=== PATIENT | male | born 1995 | race Caucasian/White ===

== ENCOUNTER → 2022-01-27 | Outpatient (CLI) | payer BC ==
--- NOTE | 2022-01-27 11:47 | Diagnostic Imaging Report ---
Indication: Wrist pain. Time of Exam: 9:25 AM 2 views of each wrist were obtained. Distal radius and ulna are intact bilaterally. Carpal bones and metacarpals are intact. There are no fractures. Joint spaces are maintained. No osseous erosive changes are seen. Soft tissues are unremarkable. Impression: Unremarkable bilateral wrist radiograph. Dictated by: Dictated on workstation # [id number]
--- NOTE | 2022-01-27 11:48 | Diagnostic Imaging Report ---
Indication: Bilateral hand pain. Time of Exam: 9:42 AM Multiple views of bilateral hands were obtained. Metacarpals and phalanges are intact. The joint spaces are well maintained. No osseous erosive changes are seen. There are no fractures. Soft tissues are unremarkable. Impression: Unremarkable bilateral hand radiographs. Dictated by: Dictated on workstation # [id number]
== END ==
LOC: ORTHO 09:18
PROVIDERS: ATTEND Orthopaedic Surgery
DX: M79.641 Pain in right hand (principal); M79.642 Pain in left hand; M25.531 Pain in right wrist; M25.532 Pain in left wrist
CPT/HCPCS: 99203

== ENCOUNTER 2022-01-31 05:39 | Outpatient (CLI) | payer BC ==
[~2022-01-31] VITALS: Ht 177.8 cm; Wt 99.1 kg
[2022-02-03] MEDS ORDERED: FEXO180T84 PO (14:37)
[2022-02-03] MEDS ORDERED: ACET325T38 PO (14:37)
[2022-02-03] MEDS ORDERED: HYDR-700 PO (14:37)
== END 2022-02-03 14:47 | disposition home or self-care (01) ==
LOC: PREOP 05:39
PROVIDERS: ATTEND Orthopaedic Surgery
DX: Z01.818 Encounter for other preprocedural examination (principal)

== ENCOUNTER 2022-02-07 06:02 | Day surgery (SDC) | payer BC ==
[2022-02-07] VITALS (10 sets, daily range): BP systolic 102–122; BP diastolic 45–82
[~2022-02-07] VITALS: Ht 177.8 cm; Wt 99.1 kg
[~2022-02-07 06:02] MED LIST: ACET325T38 PO; FEXO180T84 PO; HYDR-700 PO
[2022-02-07] MEDS ORDERED: CLINDAMYCIN 600 MG/50 ML IVPB 50 ML IV ONE (06:15)
[2022-02-07] MEDS: LACTATED RINGERS 1,000 ML IV PRN ×2 (06:31→08:09)
[2022-02-07] MEDS ORDERED: NEO/POLY/BAC (NEOSPORIN) OINT 15 GM TUBE ONE (06:55)
[2022-02-07] MEDS ORDERED: BUPIVACAINE 0.25% 30 ML (SENSORCAINE) VIAL ONE (06:55)
[2022-02-07] MEDS ORDERED: PROPOFOL INJECTION 50 ML IV ONE ×2 (06:57→08:18)
[2022-02-07] MEDS ORDERED: LIDOCAINE PF 0.5% 50 ML (XYLOCAINE) VIAL ONE (06:57)
[2022-02-07] MEDS ORDERED: MIDAZOLAM 2 MG/2 ML (VERSED) VIAL ONE ×2 (06:58→07:57)
--- NOTE | 2022-02-07 07:42 | Progress Note-Pre Operative ---
Pre-Operative Progress Note H&P Reviewed The H&P was reviewed, patient examined and no changes noted. Date Seen by Provider: Feb 07, 2022 Time Seen by Provider: 07:30 Date H&P Reviewed: Feb 07, 2022 Time H&P Reviewed: 07:30 Pre-Operative Diagnosis: Left Carpal Tunnel Syndrome EARNEST DENNISON MD Feb 07, 2022 07:42
--- NOTE | 2022-02-07 08:30 | Operative Report - Ortho ---
Operative Report Surgeon (s)/Global Climate Change Researcher (s) Surgeon EARNEST DENNISON MD Global Climate Change Researcher n/a Pre-Operative Diagnosis Left Carpal Tunnel Syndrome Post-Operative Diagnosis same Operative Report Date of Procedure: Feb 07, 2022 Name of Procedure Performed: Left Carpal Tunnel Release Description & Findings After obtaining informed consent and marking the patient in the preoperative holding area, the patient was administered IV antibiotics. The patient was t aken to the operating room and sia block anesthesia was induced. The left upper extremity was prepped and draped in the usual sterile fashion. Surgical timeout was taken. Incision was made just ulnar to the thenar crease. Blunt dissection was carried down to the longitudinal fibers of the palmar fascia; these were divided in line revealing the transverse carpal ligament. Beginning distally and working proximally, carpal tunnel release was performed. Nerve protector was placed and release was completed back to the level of the forearm fascia. Probe was inserted and release was palpably complete. Tourniquet was dropped and hemostasis was achieved. Wound was closed with 4-0 nylon. Wound was dressed with antibiotic ointment, xeroform, 4x4s, swetha, ABD for soft splint, cast padding, and MADISYN wrap. Patient tolerated the proceudre well and was stable to the recovery room. Anesthesia Type Sia Block Estimated Blood Loss minimal Specimen(s) collected/removed None EARNEST DENNISON MD Feb 07, 2022 08:30
[2022-02-07] MEDS ORDERED: OXC5T PO (08:32)
--- NOTE | 2022-02-07 08:38 | Anesthesia-General Post-Op ---
MAC Patient Condition Mental Status/LOC: Same as Preop Cardiovascular: Satisfactory Nausea/Vomiting: Absent Respiratory: Satisfactory Pain: Controlled Complications: Absent Post Op Complications Complications None Follow Up Care/Instructions Patient Instructions None needed. Anesthesiology Discharge Order Discharge Order Patient is doing well, no complaints, stable vital signs, no apparent adverse anesthesia problems. No complications reported per nursing. MARY GRACE PEREZ CRNA Feb 07, 2022 08:38
[2022-02-07] MEDS ORDERED: ONDANSETRON 4 MG/2 ML (SDV) Z0FRAN IVP PRN (08:45)
[2022-02-07] MEDS ORDERED: fentaNYL INJ 100 MCG/2 ML AMP IVP ONE (08:45)
== END 2022-02-07 10:25 | disposition home or self-care (01) ==
LOC: SDC 06:02
PROVIDERS: ATTEND Orthopaedic Surgery
DX: G56.02 Carpal tunnel syndrome, left upper limb (principal); F17.210 Nicotine dependence, cigarettes, uncomplicated; E66.9 Obesity, unspecified; Z68.30 Body mass index [BMI] 30.0-30.9, adult
CPT/HCPCS: 87081

== ENCOUNTER → 2022-02-25 | Outpatient (CLI) | payer BC ==
[~2022-02-25] MED LIST changes: +OXC5T PO
== END ==
LOC: ORTHO 14:36
PROVIDERS: ATTEND Orthopaedic Surgery
DX: Z47.89 Encounter for other orthopedic aftercare (principal); E11.9 Type 2 diabetes mellitus without complications; Z98.890 Other specified postprocedural states

== ENCOUNTER 2022-03-16 07:02 | Outpatient (CLI) | payer BC ==
[~2022-03-16] VITALS: Ht 177.8 cm; Wt 99.1 kg
== END 2022-03-17 15:24 ==
LOC: PREOP 07:02
PROVIDERS: ATTEND Orthopaedic Surgery
DX: Z01.818 Encounter for other preprocedural examination (principal); G56.01 Carpal tunnel syndrome, right upper limb

== ENCOUNTER 2022-03-21 11:22 | Day surgery (SDC) | payer BC ==
[2022-03-21] VITALS (7 sets, daily range): BP systolic 108–141; BP diastolic 68–84
[~2022-03-21] VITALS: Ht 177 cm; Wt 99.1 kg
[2022-03-21] MEDS ORDERED: CLINDAMYCIN 600 MG/50 ML IVPB 50 ML IV ONE ×2 (11:45→11:52)
[2022-03-21] MEDS ORDERED: LACTATED RINGERS 1,000 ML IV PRN (11:45)
[2022-03-21] MEDS ORDERED: BUPIVACAINE 0.25% 30 ML (SENSORCAINE) VIAL ONE (12:40)
[2022-03-21] MEDS ORDERED: NEO/POLY/BAC (NEOSPORIN) OINT 15 GM TUBE ONE (12:40)
[2022-03-21] MEDS ORDERED: MIDAZOLAM 2 MG/2 ML (VERSED) VIAL ONE (13:19)
[2022-03-21] MEDS ORDERED: fentaNYL INJ 100 MCG/2 ML AMP ONE (13:34)
[2022-03-21] MEDS ORDERED: KETAMINE HCL 100 MG/ML 5 ML VIAL ONE (13:36)
[2022-03-21] MEDS ORDERED: KETAMINE 50 MG/5 ML SYRINGE ONE (13:37)
[2022-03-21] MEDS ORDERED: PROPOFOL INJECTION 50 ML IV ONE (13:54)
--- NOTE | 2022-03-21 14:04 | Operative Report - Ortho ---
Operative Report Surgeon (s)/Wood Machinist Apprentice (s) Surgeon EARNEST DENNISON MD Wood Machinist Apprentice n/a Pre-Operative Diagnosis right carpal tunnel syndrome Post-Operative Diagnosis same Operative Report Date of Procedure: Mar 21, 2022 Name of Procedure Performed: Right Carpal Tunnel Release Description & Findings After obtaining informed consent and marking the patient in the preoperative holding area, the patient was administered IV antibiotics. The patient was taken to the operating room and sia block anesthesia was induced. The right upper extremity was prepped and draped in the usual sterile fashion. Surgical timeout was taken. Incision was made just ulnar to the thenar crease. Blunt dissection was carried down to the longitudinal fibers of the palmar fascia; these were divided in line revealing the transverse carpal ligament. Beginning distally and working proximally, carpal tunnel release was performed. Nerve protector was placed and release was completed back to the level of the forearm fascia. Probe was inserted and release was palpably complete. Tourniquet was dropped and hemostasis was achieved. Wound was closed with 4-0 nylon. Wound was dressed with antibiotic ointment, xeroform, 4x4s, swetha, ABD for soft splint, cast padding, and MADISYN wrap. Patient tolerated the procedure well and was stable to the recovery room. Anesthesia Type Sia block Estimated Blood Loss minimal Specimen(s) collected/removed None EARNEST DENNISON MD Mar 21, 2022 14:04
[2022-03-21] MEDS ORDERED: ACHD5005 PO (14:06)
[2022-03-21] MEDS ORDERED: ONDANSETRON 4 MG/2 ML (SDV) Z0FRAN ONE (14:08)
--- NOTE | 2022-03-21 14:20 | Anesthesia-General Post-Op ---
General Patient Condition Mental Status/LOC: Same as Preop Cardiovascular: Satisfactory Nausea/Vomiting: Absent Respiratory: Satisfactory Pain: Controlled Complications: Absent Post Op Complications Complications None Follow Up Care/Instructions Patient Instructions None needed. Anesthesia/Patient Condition Patient Condition Patient is doing well, no complaints, stable vital signs, no apparent adverse anesthesia problems. No complications reported per nursing. TAMICA REECE CRNA Mar 21, 2022 14:20
[2022-03-21] MEDS ORDERED: ONDANSETRON 4 MG/2 ML (SDV) Z0FRAN IVP PRN (14:30)
[2022-03-21] MEDS ORDERED: fentaNYL INJ 100 MCG/2 ML AMP IVP ONE (14:30)
== END 2022-03-21 15:10 | disposition home or self-care (01) ==
LOC: SDC 11:22
PROVIDERS: ATTEND Orthopaedic Surgery
DX: G56.01 Carpal tunnel syndrome, right upper limb (principal); F17.210 Nicotine dependence, cigarettes, uncomplicated; Z88.0 Allergy status to penicillin; E66.9 Obesity, unspecified; Z68.31 Body mass index [BMI] 31.0-31.9, adult; Z28.310 Unvaccinated for COVID-19
CPT/HCPCS: 87081

== ENCOUNTER → 2022-04-05 | Outpatient (CLI) | payer BC ==
[~2022-04-05] MED LIST changes: +ACHD5005 PO
== END ==
LOC: ORTHO 09:00
PROVIDERS: ATTEND Orthopaedic Surgery
DX: Z47.89 Encounter for other orthopedic aftercare (principal); E11.9 Type 2 diabetes mellitus without complications; Z98.890 Other specified postprocedural states

== ENCOUNTER → 2022-04-26 | Outpatient (CLI) | payer BC | LOC: ORTHO 08:36 | PROVIDERS: ATTEND Orthopaedic Surgery | DX: Z47.89 Encounter for other orthopedic aftercare (principal) ==